=== PATIENT | male | born 1965 | race Caucasian/White ===

== ENCOUNTER 2023-12-02 13:02 | Emergency (ER) | payer MEDICAID ==
[~2023-12-02] VITALS: Ht 170.2 cm; Wt 75.0 kg
[2023-12-02 13:06] VITALS: O2SAT 96
[2023-12-02 13:19] VITALS: BP 119/78; TEMP 98.3
[2023-12-02] MEDS ORDERED: ALBU6.7H15 INH (13:32)
[2023-12-02] MEDS ORDERED: P50 MT (13:32)
[2023-12-02] MEDS: IPRATROPIUM/ALBUTEROL 0.5-3(2.5)MG/3ML NEB HHN ONE (13:47)
[2023-12-02 13:48] VITALS: PULSE 82; RESP 18
[2023-12-02] MEDS: PREDNISONE 20MG TABLET PO ONE (13:49)
== END 2023-12-02 13:53 | disposition home or self-care (01) ==
LOC: ER 13:02
DX: J44.1 Chronic obstructive pulmonary disease with (acute) exacerbation (principal)
CPT/HCPCS: 94640; 99283; J7512; Z7610 ×7

== ENCOUNTER 2024-10-08 08:35 | Inpatient (IN) | payer MEDICAID ==
[~2024-10-08] VITALS: Ht 180.3 cm; Wt 58.1 kg
[~2024-10-08 08:35] MED LIST: ALBU6.7H15 INH; P50 MT
[2024-10-08 09:09] LABS: BG CARBOXYHEMOGLOBIN 0.7 % (0.5-1.5); BG DEOXYHEMOGLOBIN 2.7 % (0.0-5.0); BG HCO3 ACT 24.6 mmol/L (21.0-28.0); BG METHEMOGLOBIN 0.1 % (0.5-1.5); BG OXYGEN SATURATION 97.3 % (94.0-98.0); BG OXYHEMOGLOBIN 96.5 % (94.0-98.0); BG PCO2 43.9 mmHg (35.0-48.0); BG PH 7.366 (7.350-7.450); BG PO2 93.5 mmHg (83.0-108.0); BG TOTAL HEMOGLOBIN 15.4 g/dL (13.5-17.5); BG VENT MODE NASAL CANNULA
[2024-10-08 09:12] LABS: BASOPHILS % 0.4 % (0.0-2.0); EOSINOPHILS % 0.8 % (0.0-5.0); HEMATOCRIT. 42.2 % (42.0-52.0); HEMOGLOBIN. 14.4 g/dL (14.0-18.0); LYMPHOCYTES % 13.8 % (20.0-50.0); MEAN CORPUSCULAR HEMOGLOBIN 31.3 pg (28.0-32.0); MEAN CORPUSCULAR HGB CONC 34.2 g/dL (31.0-37.0); MEAN CORPUSCULAR VOLUME 91.7 fL (80.0-94.0); MEAN PLATELET VOLUME 6.8 fl (7.4-10.4); PLATELET 133 x1000/uL (130-400); RED BLOOD CELL COUNT 4.61 mill/uL (4.7-6.1); RED CELL DISTRIBUTION WIDTH 14.6 % (11.6-14.6); WHITE BLOOD COUNT 9.7 x1000/uL (4.5-11.0)
[2024-10-08 09:15] VITALS: PULSE 109; RESP 30; O2SAT 96
[2024-10-08] MEDS: IPRATROPIUM BROMIDE (0.02%) 0.5MG/2.5ML NEB HHN STA (09:15)
[2024-10-08] MEDS: METHYLPREDNISOLONE SOD SUCC 125MG/2ML (ACT-O-VIAL) IV STA (09:18)
[2024-10-08] MEDS: SODIUM CHLORIDE 0.9% 1,000 ML IV ONE (09:18)
[2024-10-08 09:22] LABS: CHLORIDE 104 mEq/L (98-107); POTASSIUM 3.5 mEq/L (3.5-5.1); PROTHROMBIN TIME 10.4 sec (9.6-11.0); SODIUM 138 mEq/L (136-145)
[2024-10-08 09:23] LABS: CARBON DIOXIDE 26 mEq/L (21-32)
[2024-10-08] MEDS: ALBUTEROL (0.083%) 2.5MG/3ML NEB HHN STA (09:23)
[2024-10-08 09:24] LABS: CALCIUM 9.6 mg/dL (8.7-10.4)
[2024-10-08 09:28] LABS: CREATININE 0.7 mg/dL (0.6-1.3); GLUCOSE 126 mg/dL (70-105); UREA NITROGEN BLOOD 14 mg/dL (9-23)
[2024-10-08 09:29] LABS: ETHANOL BLOOD < 10 mg/dL (<10)
[2024-10-08 09:30] LABS: TROPONIN I HIGH SENSITIVITY 4 ng/L (3.0-53)
[2024-10-08] MEDS: SODIUM CHLORIDE 0.9% (SEPSIS BOLUS) IV ONE (09:30)
[2024-10-08] MEDS: LEVOFLOXACIN 750MG PREMIX 150 ML IV NR (10:35)
[2024-10-08 11:28] LABS: TROPONIN I HIGH SENSITIVITY 6 ng/L (3.0-53)
[2024-10-08] MEDS ORDERED: ACETAMINOPHEN 325MG TABLET PO PRN ×2 (15:15)
[2024-10-08] MEDS ORDERED: DOCUSATE SODIUM 100MG CAPSULE PO PRN (15:15)
[2024-10-08] MEDS ORDERED: CLONIDINE 0.1MG TABLET PO PRN (15:15)
[2024-10-08] MEDS ORDERED: ONDANSETRON HCL 4MG/2ML INJ IV PRN (15:15)
[2024-10-08] MEDS ORDERED: MAGNESIUM/ALUMINUM HYDROXIDE/SIMETHICONE 30ML UDC PO PRN (15:15)
[2024-10-08] MEDS ORDERED: GUAIFENESIN 200MG/10ML SUGAR FREE UDC PO PRN (15:15)
[2024-10-08] MEDS ORDERED: AZITHROMYCIN 500MG/250ML 250 ML IV SCH (17:00)
[2024-10-08 17:21] VITALS: BP 108/73; PULSE 71; RESP 20; TEMP 36.6
[2024-10-08] MEDS: AZITHROMYCIN 500MG/250ML 250 ML IV SCH (18:23)
[2024-10-08] MEDS: OLANZAPINE 10MG TABLET PO SCH (18:25)
[2024-10-08 20:00] VITALS: BP 101/63; PULSE 86; RESP 18; TEMP 36.8; O2SAT 100
[2024-10-08] MEDS: METHYLPREDNISOLONE SOD SUCC 40MG/ML (ACT-O-VIAL) IV SCH (20:53)
[2024-10-08] MEDS: ATORVASTATIN CALCIUM 10MG TABLET PO SCH (20:54)
[2024-10-08] MEDS: ENOXAPARIN 40MG/0.4ML SYR SUBCUT SCH (20:54)
[2024-10-08 21:23] LABS: *AMPHETAMINES SCREEN URINE NEGATIVE (NEGATIVE); *BARBITURATES SCREEN URINE NEGATIVE (NEGATIVE); *BENZODIAZEPINES SCREEN URINE NEGATIVE (NEGATIVE); *COCAINE SCREEN URINE NEGATIVE (NEGATIVE); METHADONE URINE SCREEN NEGATIVE (NEGATIVE); OPIATES URINE SCREEN PRESUMPTIVE POSITIVE (NEGATIVE); PHENCYCLIDINE URINE SCREEN NEGATIVE (NEGATIVE)
[2024-10-08 21:24] LABS: CANNABINOID URINE SCREEN NEGATIVE (NEGATIVE); ECSTASY MDMA SCREEN URINE NEGATIVE (NEGATIVE)
[2024-10-09] VITALS (10 sets, daily range): BP systolic 98–139; BP diastolic 61–85; PULSE 65–93; RESP 16–20; TEMP 35.9–36.6; O2SAT 94–99
[2024-10-09] MEDS: CITALOPRAM HYDROBROMIDE 10MG TABLET PO SCH (09:36)
[2024-10-09] MEDS: PANTOPRAZOLE SODIUM 40 MG/VIAL IV SCH (09:36)
[2024-10-09 09:52] LABS: CHLORIDE 104 mEq/L (98-107); POTASSIUM 4.2 mEq/L (3.5-5.1); SODIUM 140 mEq/L (136-145)
[2024-10-09 09:55] LABS: HEMATOCRIT. 36.6 % (42.0-52.0); HEMOGLOBIN. 12.5 g/dL (14.0-18.0); MEAN CORPUSCULAR HGB CONC 34.2 g/dL (31.0-37.0); MEAN CORPUSCULAR VOLUME 90.8 fL (80.0-94.0); MEAN PLATELET VOLUME 7.9 fl (7.4-10.4); PLATELET 138 x1000/uL (130-400); RED BLOOD CELL COUNT 4.04 mill/uL (4.7-6.1); RED CELL DISTRIBUTION WIDTH 14.1 % (11.6-14.6); WHITE BLOOD COUNT 8.7 x1000/uL (4.5-11.0)
[2024-10-09 09:56] LABS: CALCIUM 8.9 mg/dL (8.7-10.4); CARBON DIOXIDE 28 mEq/L (21-32)
[2024-10-09 10:00] LABS: T4 FREE 0.95 ng/dL (0.89-1.76); THYROID STIMULATING HORMONE 0.38 uIU/mL (0.55-4.78)
[2024-10-09 10:01] LABS: CREATININE 0.5 mg/dL (0.6-1.3)
[2024-10-09 10:02] LABS: GLUCOSE 121 mg/dL (70-105); TRIGLYCERIDE 122 mg/dL (0-150); UREA NITROGEN BLOOD 9 mg/dL (9-23)
[2024-10-09 10:03] LABS: CHOLESTEROL 142 mg/dL (<200); LDL CHOLESTEROL 88 mg/dL (5-100)
[2024-10-09 10:04] LABS: HDL CHOLESTEROL 34 mg/dL (>55)
[2024-10-09 10:09] LABS: DIFFERENTIAL COMMENT 1
[2024-10-09] MEDS: IPRATROPIUM/ALBUTEROL 0.5-3(2.5)MG/3ML NEB HHN SCH (10:11)
[2024-10-09] MEDS: NICOTINE 21MG PATCH TD SCH (13:15)
[2024-10-09 15:48] LABS: PLATELET ESTIMATE NORMAL
[2024-10-09] MEDS: IPRATROPIUM/ALBUTEROL 0.5-3(2.5)MG/3ML NEB HHN PRN (18:09)
[2024-10-09] MEDS: BUDESONIDE 0.5MG/2ML NEB HHN SCH (20:17)
[2024-10-10] VITALS (7 sets, daily range): BP systolic 105–121; BP diastolic 69–83; PULSE 70–93; RESP 16–20; TEMP 36.1–36.9; O2SAT 94–98
== END 2024-10-10 16:10 | disposition home or self-care (01) | DRG 720 ==
LOC: ER 08:35 → EDBEDREQ 08:54 → 7WST 14:37 → ENRESERV 14:52
PROVIDERS: ADMIT Internal Medicine; ATTEND Internal Medicine
DX: A41.9 Sepsis, unspecified organism (principal); J96.01 Acute respiratory failure with hypoxia; J18.9 Pneumonia, unspecified organism; J44.1 Chronic obstructive pulmonary disease with (acute) exacerbation; E78.00 Pure hypercholesterolemia, unspecified; J44.0 Chronic obstructive pulmonary disease with (acute) lower respiratory infection; F20.9 Schizophrenia, unspecified; I10 Essential (primary) hypertension; F17.210 Nicotine dependence, cigarettes, uncomplicated; Z79.899 Other long term (current) drug therapy
CPT/HCPCS: 36415; 36600; 71045; 80048; 80061; 80305; 80320; 82375; 82805; 82962; 83605; 83880; 84145; 84439; 84443; 84484; 85025; 93005; 94070; 94640; 94664; 94760; 98960; 99291; A4606; J0456; J1650; J1956; J2470; J2919; J7030; J7626; G0480